=== PATIENT | male | born 1995 | race African-American/Black ===

== ENCOUNTER 2021-09-07 21:59 | Inpatient (IN) | payer MEDICAID ==
[~2021-09-07] VITALS: Ht 185.4 cm; Wt 68.5 kg
[2021-09-07 22:54] LABS: ANION GAP 9 mmol/L (8-16); CALCIUM, TOTAL 8.9 mg/dL (8.8-10.5); CARBON DIOXIDE 27 mmol/L (22-29); CHLORIDE 102 mmol/L (98-107); CREATININE 0.88 mg/dL (0.60-1.30); GLOMERULAR FILTR. RATE CALC > 60 mL/min (>60); GLUCOSE,RANDOM 85 mg/dL (70-110); POTASSIUM 3.1 mmol/L (3.5-5.1); SODIUM SERUM 138 mmol/L (136-145); UREA NITROGEN, BLOOD 11 mg/dL (7-18)
[2021-09-07 23:00] LABS: ALANINE AMINOTRANSFERASE 17 U/L (12-78); ALKALINE PHOSPHATASE 59 U/L (46-116); ASPARTATE AMINOTRANSFERASE 23 U/L (15-37); BILIRUBIN,TOTAL 0.8 mg/dL (0.1-1.0); TOTAL PROTEIN, SERUM 7.5 g/dL (6.4-8.2)
[2021-09-07 23:03] LABS: BASOPHILS % (AUTO) 0.3 % (0.0-2.0); EOSINOPHILS % (AUTO) 0.2 % (1.0-6.0); HEMATOCRIT 39.1 % (41-53); HEMOGLOBIN 12.9 g/dL (13.5-17.5); LYMPHOCYTES # (AUTO) 0.7 K/uL (1.0-4.8); LYMPHOCYTES % (AUTO) 14.5 % (22.0-44.0); MEAN CORPUSCULAR HEMOGLOBIN 30.1 pg (26.0-34.0); MEAN CORPUSCULAR HGB CONC 33.1 G/dL (31.0-37.0); MEAN CORPUSCULAR VOLUME 91 fL (80-100); MONOCYTES # (AUTO) 0.4 K/uL (0.1-1.0); MONOCYTES % (AUTO) 8.6 % (2.0-9.0); NEUTROPHILS # (AUTO) 3.8 K/uL (1.8-7.7); NEUTROPHILS % (AUTO) 76.4 % (40.0-70.0); PLATELET COUNT (AUTO) 274 K/uL (150-450); RED CELL DISTRIBUTION WIDTH 12.6 % (11.5-14.5)
[2021-09-08 05:03] LABS: COVID AG,FIA SOURCE NASAL SWAB
[2021-09-08 05:26] LABS: AMPHET/METH SCREEN,URINE POSITIVE (NEGATIVE); BARBITURATE SCREEN, URINE NEGATIVE (NEGATIVE); BENZODIAZEPINES SCREEN,URINE NEGATIVE (NEGATIVE); CANNABINOID SCREEN,URINE NEGATIVE (NEGATIVE); COCAINE SCREEN,URINE NEGATIVE (NEGATIVE); METHADONE SCREEN, URINE NEGATIVE (NEGATIVE); OPIATE SCREEN,URINE NEGATIVE (NEGATIVE); PHENCYCLIDINE SCREEN,URINE NEGATIVE (NEGATIVE)
[2021-09-08] MEDS ORDERED: OLANZapine 5 MG RAPDIS TABLET PO ONE (06:00)
[2021-09-08 09:16] LABS: APPEARANCE,URINE TURBID (CLEAR); BILIRUBIN,URINE NEGATIVE (NEGATIVE); GLUCOSE, URINE (UA) NEGATIVE (NEGATIVE); KETONES,URINE 40-60 mg/dL (NEGATIVE); LEUKOCYTE ESTERASE ,URINE NEGATIVE (NEGATIVE); NITRATE,URINE NEGATIVE (NEGATIVE); OCCULT BLOOD,URINE NEGATIVE (NEGATIVE); PH,URINE 5.5 (5.0-8.0); PROTEIN,URINE TRACE mg/dL (NEGATIVE); SPECIFIC GRAVITIY, URINE 1.024 (1.003-1.030); UROBILINOGEN,URINE <=1.0 mg/dL (<=1.0)
[2021-09-08 10:52] LABS: BACTERIA,URINE None Seen /HPF (None Seen); RBC,URINE 0-2 /HPF (0-2); WBC,URINE None Seen /HPF (0-5)
[2021-09-08 10:53] LABS: AMORPHOUS SEDIMENT,UR Many /LPF (None Seen)
[2021-09-08 12:46] VITALS: BP 116/72
[2021-09-08 17:45] VITALS: BP 118/70
[2021-09-08] MEDS: LORazepam 2 MG TABLET PO PRN (20:51)
[2021-09-08] MEDS: HALOPERIDOL 5 MG TABLET PO PRN (20:52)
[2021-09-09] MEDS ORDERED: PETROLATUM,WHITE 28 GM JELLY TP PRN (07:45)
[2021-09-09] MEDS ORDERED: CloNIDine HCL 0.1 MG TABLET PO PRN (07:45)
[2021-09-09] MEDS ORDERED: DOCUSATE SODIUM 100 MG CAPSULE PO PRN (07:45)
[2021-09-09] MEDS ORDERED: ONDANSETRON HCL 4 MG TABLET PO PRN (07:45)
[2021-09-09] MEDS ORDERED: MAG HYDROX/AL HYDROX/SIMETH ES 30 ML SUSPENSION UDCUP PO PRN (07:45)
[2021-09-09] MEDS ORDERED: OMEPRAZOLE 20 MG CAPSULE PO PRN (07:45)
[2021-09-09] MEDS ORDERED: ACETAMINOPHEN 325 MG TABLET PO PRN (07:45)
[2021-09-09] MEDS ORDERED: BENZOCAINE/MENTHOL LOZENGE PO PRN (07:45)
[2021-09-09] MEDS ORDERED: BACITRACIN 28 GM OINTMENT TP PRN (07:45)
[2021-09-09] MEDS ORDERED: LOPERAMIDE HCL 2 MG CAPSULE PO PRN (07:45)
[2021-09-09] MEDS ORDERED: IBUPROFEN 600 MG TABLET PO PRN (07:45)
[2021-09-09] MEDS ORDERED: MAGNESIUM HYDROXIDE SUSPENSION 30 ML UDCUP PO PRN (07:45)
[2021-09-09] MEDS ORDERED: ALBUTEROL SULFATE HFA 90 MCG/PUFF 8 GM INHALER IH PRN (07:45)
[2021-09-09] MEDS ORDERED: POTASSIUM CHLORIDE 20 MEQ ER TABLET PO ONE (08:45)
[2021-09-09 17:17] VITALS: BP 115/62
[2021-09-09] MEDS: OLANZapine 10 MG TABLET PO SCH (21:00)
[2021-09-10 06:08] VITALS: BP 104/64
[2021-09-10] MEDS ORDERED: LORazepam 2 MG/ML VIAL ONE (11:17)
[2021-09-10] MEDS ORDERED: HALOPERIDOL LACTATE 5 MG/ML VIAL ONE (11:18)
[2021-09-10] MEDS ORDERED: DiphenhydrAMINE HCL 50 MG/ML VIAL ONE (11:18)
[2021-09-10] MEDS ORDERED: LORazepam 2 MG/ML VIAL IM ONE (11:45)
[2021-09-10] MEDS ORDERED: HALOPERIDOL LACTATE 5 MG/ML VIAL IM ONE (11:45)
[2021-09-10] MEDS ORDERED: DiphenhydrAMINE HCL 50 MG/ML VIAL IM ONE (11:45)
[2021-09-10] MEDS: LORazepam 2 MG TABLET PO PRN (11:46)
[2021-09-10 16:26] VITALS: BP 118/68
[2021-09-10] MEDS: OLANZapine 10 MG TABLET PO SCH (21:00)
[2021-09-11 08:22] VITALS: BP 115/67
[2021-09-11] MEDS: LORazepam 2 MG TABLET PO PRN (08:40)
[2021-09-11] MEDS ORDERED: HALOPERIDOL LACTATE 5 MG/ML VIAL IM ONE (09:00)
[2021-09-11] MEDS ORDERED: DiphenhydrAMINE HCL 50 MG/ML VIAL IM ONE (09:00)
[2021-09-11] MEDS ORDERED: LORazepam 2 MG/ML VIAL IM ONE (09:00)
[2021-09-11 16:23] VITALS: BP 118/70
[2021-09-11] MEDS: OLANZapine 10 MG TABLET PO SCH (20:48)
[2021-09-12 08:31] VITALS: BP 106/67
[2021-09-12] MEDS: HALOPERIDOL 5 MG TABLET PO PRN (10:24)
[2021-09-12] MEDS: LORazepam 2 MG TABLET PO PRN ×2 (10:24→20:53)
[2021-09-12] MEDS: ZOLPIDEM TARTRATE 10 MG TABLET PO PRN (20:53)
[2021-09-12] MEDS: HALOPERIDOL 5 MG TABLET PO SCH (20:53)
[2021-09-13] MEDS: LORazepam 2 MG TABLET PO PRN (04:34)
[2021-09-13] MEDS: HALOPERIDOL 5 MG TABLET PO PRN (04:34)
[2021-09-13 05:08] VITALS: BP 104/71
[2021-09-13] MEDS ORDERED: DiphenhydrAMINE HCL 50 MG/ML VIAL IM ONE (10:30)
[2021-09-13] MEDS ORDERED: LORazepam 2 MG/ML VIAL IM ONE (10:30)
[2021-09-13] MEDS ORDERED: HALOPERIDOL LACTATE 5 MG/ML VIAL IM ONE (10:30)
[2021-09-13 16:20] VITALS: BP 103/63
[2021-09-13] MEDS: HALOPERIDOL 5 MG TABLET PO SCH (21:47)
[2021-09-14] MEDS: LORazepam 2 MG TABLET PO PRN ×3 (08:40→19:01)
[2021-09-14 16:23] VITALS: BP 112/76
[2021-09-14] MEDS: ZOLPIDEM TARTRATE 10 MG TABLET PO PRN (20:10)
[2021-09-14] MEDS: HALOPERIDOL 5 MG TABLET PO SCH (20:10)
[2021-09-15] MEDS: HALOPERIDOL 5 MG TABLET PO PRN ×3 (02:17→13:57)
[2021-09-15] MEDS: LORazepam 2 MG TABLET PO PRN ×3 (02:17→13:57)
[2021-09-15 08:19] VITALS: BP 115/67
[2021-09-15] MEDS ORDERED: HALO5TAB2 PO (14:56)
[2021-09-15 16:22] VITALS: BP 129/86
== END 2021-09-15 16:30 | disposition home or self-care (01) | DRG 750 ==
LOC: EMS 22:02 → B3A 09-08 08:13 → B2S 09-09 19:31 → B3A 09-09 21:02
PROVIDERS: ADMIT Psychiatry & Neurology Psychiatry; ATTEND Psychiatry & Neurology Psychiatry
DX: F25.9 Schizoaffective disorder, unspecified (principal); R45.851 Suicidal ideations; E87.6 Hypokalemia; F15.10 Other stimulant abuse, uncomplicated; F32.A Depression, unspecified; F41.9 Anxiety disorder, unspecified; Z20.822 Contact with and (suspected) exposure to COVID-19; G47.00 Insomnia, unspecified; K59.00 Constipation, unspecified; F17.210 Nicotine dependence, cigarettes, uncomplicated; Z78.1 Physical restraint status; Z72.89 Other problems related to lifestyle; Z71.51 Drug abuse counseling and surveillance of drug abuser
CPT/HCPCS: 80053; 81001; 85025; 99285; G0480; J1200; J1630; J2060; Q0162

== ENCOUNTER 2021-09-22 15:07 | Emergency (ER) | payer SELFPAY ==
[~2021-09-22] VITALS: Ht 185.4 cm; Wt 70.5 kg
[~2021-09-22 15:07] MED LIST: HALO5TAB2 PO
[2021-09-22 16:14] LABS: BASOPHILS % (AUTO) 0.2 % (0.0-2.0); EOSINOPHILS % (AUTO) 0.1 % (1.0-6.0); HEMATOCRIT 43.7 % (41-53); HEMOGLOBIN 14.6 g/dL (13.5-17.5); LYMPHOCYTES # (AUTO) 0.5 K/uL (1.0-4.8); LYMPHOCYTES % (AUTO) 10.3 % (22.0-44.0); MEAN CORPUSCULAR HGB CONC 33.5 G/dL (31.0-37.0); MEAN CORPUSCULAR VOLUME 93 fL (80-100); MONOCYTES # (AUTO) 0.4 K/uL (0.1-1.0); MONOCYTES % (AUTO) 7.7 % (2.0-9.0); NEUTROPHILS # (AUTO) 3.9 K/uL (1.8-7.7); NEUTROPHILS % (AUTO) 81.7 % (40.0-70.0); PLATELET COUNT (AUTO) 390 K/uL (150-450); RED BLOOD CELL COUNT(AUTO) 4.71 MIL/uL (4.50-5.90); RED CELL DISTRIBUTION WIDTH 13.9 % (11.5-14.5)
[2021-09-22 16:25] LABS: ANION GAP 16 mmol/L (8-16); CALCIUM, TOTAL 9.5 mg/dL (8.8-10.5); CARBON DIOXIDE 19 mmol/L (22-29); CHLORIDE 104 mmol/L (98-107); GLOMERULAR FILTR. RATE CALC > 60 mL/min (>60); GLUCOSE,RANDOM 126 mg/dL (70-110); POTASSIUM 3.7 mmol/L (3.5-5.1); SODIUM SERUM 139 mmol/L (136-145); UREA NITROGEN, BLOOD 6 mg/dL (7-18)
[2021-09-22 16:31] LABS: ALANINE AMINOTRANSFERASE 19 U/L (12-78); ALBUMIN 3.9 g/dL (3.4-5.0); ALKALINE PHOSPHATASE 56 U/L (46-116); ASPARTATE AMINOTRANSFERASE 13 U/L (15-37); BILIRUBIN,TOTAL 0.5 mg/dL (0.1-1.0); TOTAL PROTEIN, SERUM 8.1 g/dL (6.4-8.2)
[2021-09-22 16:45] LABS: AMPHET/METH SCREEN,URINE POSITIVE (NEGATIVE); BARBITURATE SCREEN, URINE NEGATIVE (NEGATIVE); BENZODIAZEPINES SCREEN,URINE NEGATIVE (NEGATIVE); CANNABINOID SCREEN,URINE NEGATIVE (NEGATIVE); COCAINE SCREEN,URINE NEGATIVE (NEGATIVE); METHADONE SCREEN, URINE NEGATIVE (NEGATIVE); OPIATE SCREEN,URINE NEGATIVE (NEGATIVE)
[2021-09-22] MEDS ORDERED: HALOPERIDOL LACTATE 5 MG/ML VIAL IM ONE (16:45)
[2021-09-22] MEDS ORDERED: LORazepam 1 MG TABLET PO ONE (16:45)
[2021-09-22 16:46] LABS: PHENCYCLIDINE SCREEN,URINE NEGATIVE (NEGATIVE)
[2021-09-22 18:21] VITALS: BP 151/87
== END 2021-09-22 18:25 | disposition home or self-care (01) ==
LOC: EMS 15:07
DX: F29 Unspecified psychosis not due to a substance or known physiological condition (principal); F41.9 Anxiety disorder, unspecified; F15.10 Other stimulant abuse, uncomplicated; F17.210 Nicotine dependence, cigarettes, uncomplicated
CPT/HCPCS: 36415; 80053; 80307; 85025; 93005; 96372; 99284; G0480; J1630

== ENCOUNTER 2021-09-23 10:31 | Emergency (ER) | payer MEDICAID ==
[~2021-09-23] VITALS: Ht 182.9 cm; Wt 68.2 kg
[2021-09-23 11:24] LABS: BASOPHILS % (AUTO) 0.3 % (0.0-2.0); EOSINOPHILS % (AUTO) 0 % (1.0-6.0); HEMOGLOBIN 14.2 g/dL (13.5-17.5); LYMPHOCYTES # (AUTO) 0.5 K/uL (1.0-4.8); LYMPHOCYTES % (AUTO) 9.3 % (22.0-44.0); MEAN CORPUSCULAR HEMOGLOBIN 30.5 pg (26.0-34.0); MEAN CORPUSCULAR VOLUME 92 fL (80-100); MONOCYTES # (AUTO) 0.4 K/uL (0.1-1.0); NEUTROPHILS # (AUTO) 4.1 K/uL (1.8-7.7); NEUTROPHILS % (AUTO) 82.4 % (40.0-70.0); PLATELET COUNT (AUTO) 387 K/uL (150-450); RED BLOOD CELL COUNT(AUTO) 4.65 MIL/uL (4.50-5.90); RED CELL DISTRIBUTION WIDTH 13.8 % (11.5-14.5)
[2021-09-23 11:34] LABS: ANION GAP 15 mmol/L (8-16); CALCIUM, TOTAL 9.3 mg/dL (8.8-10.5); CARBON DIOXIDE 22 mmol/L (22-29); CHLORIDE 104 mmol/L (98-107); CREATININE 1.16 mg/dL (0.60-1.30); GLOMERULAR FILTR. RATE CALC > 60 mL/min (>60); GLUCOSE,RANDOM 117 mg/dL (70-110); POTASSIUM 3.4 mmol/L (3.5-5.1); SODIUM SERUM 141 mmol/L (136-145); UREA NITROGEN, BLOOD 7 mg/dL (7-18)
[2021-09-23 11:45] LABS: ALANINE AMINOTRANSFERASE 22 U/L (12-78); ALKALINE PHOSPHATASE 56 U/L (46-116); ASPARTATE AMINOTRANSFERASE 53 U/L (15-37); BILIRUBIN,TOTAL 0.9 mg/dL (0.1-1.0); TOTAL PROTEIN, SERUM 7.9 g/dL (6.4-8.2)
[2021-09-23] MEDS ORDERED: LORazepam 1 MG TABLET PO ONE (15:45)
[2021-09-23] MEDS ORDERED: HALOPERIDOL 5 MG TABLET PO ONE (15:45)
[2021-09-23 15:54] VITALS: BP 105/89
== END 2021-09-23 16:45 | disposition home or self-care (01) ==
LOC: EMS 10:34
DX: F29 Unspecified psychosis not due to a substance or known physiological condition (principal); F15.10 Other stimulant abuse, uncomplicated; F11.90 Opioid use, unspecified, uncomplicated
CPT/HCPCS: 36415; 80053; 85025; 99283; G0480

== ENCOUNTER 2022-07-31 00:33 | Inpatient (IN) | payer MEDICAID ==
[~2022-07-31] VITALS: Ht 185.4 cm; Wt 81.8 kg
[2022-07-31] MEDS ORDERED: HALOPERIDOL LACTATE 5 MG/ML VIAL IM ONE (01:30)
[2022-07-31] MEDS ORDERED: LORazepam 2 MG/ML VIAL IM ONE (01:30)
[2022-07-31] MEDS ORDERED: DiphenhydrAMINE HCL 50 MG/ML VIAL IM ONE (01:30)
[2022-07-31] MEDS ORDERED: ZOLPIDEM TARTRATE 10 MG TABLET PO PRN (09:45)
[2022-07-31 10:47] LABS: COVID AG,FIA SOURCE NASAL SWAB
[2022-07-31 15:52] VITALS: BP 104/55
[2022-07-31] MEDS ORDERED: PNEUMOCOCCAL VACCINE POLYVALENT 0.5 ML VIAL [PPSV23] IM. ONE (16:15)
[2022-07-31] MEDS ORDERED: INFLUENZA VIRUS VACCINE QVS 2022-23 (6MO+)/PF 60 MCG/0.5 ML SYRINGE IM. ONE (16:15)
[2022-08-01] MEDS ORDERED: BACITRACIN 28 GM OINTMENT TP PRN (05:00)
[2022-08-01] MEDS ORDERED: MAGNESIUM HYDROXIDE SUSPENSION 30 ML UDCUP PO PRN (05:00)
[2022-08-01] MEDS ORDERED: OMEPRAZOLE 20 MG CAPSULE PO PRN (05:00)
[2022-08-01] MEDS ORDERED: IBUPROFEN 600 MG TABLET PO PRN (05:00)
[2022-08-01] MEDS ORDERED: PETROLATUM,WHITE 28 GM JELLY TP PRN (05:00)
[2022-08-01] MEDS ORDERED: LOPERAMIDE HCL 2 MG CAPSULE PO PRN (05:00)
[2022-08-01] MEDS ORDERED: CloNIDine HCL 0.1 MG TABLET PO PRN (05:00)
[2022-08-01] MEDS ORDERED: ONDANSETRON HCL 4 MG TABLET PO PRN (05:00)
[2022-08-01] MEDS ORDERED: BENZOCAINE/MENTHOL LOZENGE PO PRN (05:00)
[2022-08-01] MEDS ORDERED: ACETAMINOPHEN 325 MG TABLET PO PRN (05:00)
[2022-08-01] MEDS ORDERED: DOCUSATE SODIUM 100 MG CAPSULE PO PRN (05:00)
[2022-08-01] MEDS ORDERED: ALBUTEROL SULFATE HFA 90 MCG/PUFF 8 GM INHALER IH PRN (05:00)
[2022-08-01] MEDS ORDERED: MAG HYDROX/AL HYDROX/SIMETH ES 30 ML SUSPENSION UDCUP PO PRN (05:00)
[2022-08-01] MEDS: HALOPERIDOL 5 MG TABLET PO PRN (06:15)
[2022-08-01] MEDS: LORazepam 2 MG TABLET PO PRN (06:15)
[2022-08-01 06:26] LABS: GLUCOMETER DEV NAME(LOC) BV3N.; GLUCOSE,POINT OF CARE 81 MG/DL (70-110)
[2022-08-01 08:33] VITALS: BP 116/69
[2022-08-02] MEDS ORDERED: LORazepam 2 MG/ML VIAL ONE (10:39)
[2022-08-02] MEDS ORDERED: HALOPERIDOL LACTATE 5 MG/ML VIAL ONE (10:40)
[2022-08-02] MEDS ORDERED: LORazepam 2 MG/ML VIAL IM ONE (11:00)
[2022-08-02] MEDS ORDERED: HALOPERIDOL LACTATE 5 MG/ML VIAL IM ONE (11:00)
[2022-08-02] MEDS: HALOPERIDOL 5 MG TABLET PO SCH (21:00)
[2022-08-03] MEDS: LORazepam 2 MG TABLET PO PRN (09:46)
[2022-08-03] MEDS: HALOPERIDOL 5 MG TABLET PO PRN (09:47)
[2022-08-03] MEDS ORDERED: LORazepam 2 MG/ML VIAL ONE (13:27)
[2022-08-03] MEDS ORDERED: HALOPERIDOL LACTATE 5 MG/ML VIAL ONE (13:27)
[2022-08-03] MEDS ORDERED: HALOPERIDOL LACTATE 5 MG/ML VIAL IM ONE (15:15)
[2022-08-03] MEDS ORDERED: LORazepam 2 MG/ML VIAL IM ONE (15:15)
[2022-08-03] MEDS: HALOPERIDOL 5 MG TABLET PO SCH (20:37)
[2022-08-03] MEDS ORDERED: BENZTROPINE MESYLATE 2 MG TABLET PO SCH (21:00)
[2022-08-04 08:19] VITALS: BP 106/75
[2022-08-04] MEDS: LORazepam 2 MG TABLET PO PRN (12:21)
[2022-08-04] MEDS ORDERED: HALO5TAB23 PO ×2 (12:24→12:27)
[2022-08-04] MEDS ORDERED: BENZ2TAB76 PO (12:25)
== END 2022-08-04 19:02 | disposition home or self-care (01) | DRG 750 ==
LOC: EMS 00:34 → B3A 12:29
PROVIDERS: ADMIT Psychiatry & Neurology Psychiatry; ATTEND Psychiatry & Neurology Psychiatry
DX: F20.9 Schizophrenia, unspecified (principal); E87.6 Hypokalemia; F32.A Depression, unspecified; Z20.822 Contact with and (suspected) exposure to COVID-19; G47.00 Insomnia, unspecified; K59.00 Constipation, unspecified; F41.9 Anxiety disorder, unspecified; F15.10 Other stimulant abuse, uncomplicated; Z78.1 Physical restraint status
CPT/HCPCS: 82962; 99291; J1200; J1630; J2060